=== PATIENT | male | born 2005 | race Caucasian/White ===

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

== ENCOUNTER 2024-03-09 09:43 | Outpatient (CLI) | payer BC, SELFPAY ==
[2024-03-09 10:22] LABS: Basophils Absolute Auto 0.1 K/mm3 (0.0-0.1); Basophils Percent Auto 0.8 % (0.2-1.2); Eosinophils Absolute Auto 0.3 K/mm3 (0-0.3); Eosinophils Percent Auto 4.1 % (0-4.4); Hematocrit 46.7 % (42.0-52.0); Hemoglobin 16.4 g/dL (14.0-18.0); Immature Granulocyte Absolute 0.02 K/mm3 (0.00-0.031); Immature Granulocyte Percent A 0.3 % (0-0.5); Lymphocytes Absolute Auto 2.46 K/mm3 (0.9-3.2); Lymphocytes Percent Auto 39.2 % (18.3-44.2); Mean Corpuscular HGB Conc 35.1 g/dl (32-36); Mean Platelet Volume 9.1 fl (7.4-10.4); Monocytes Absolute Auto 0.8 K/mm3 (0.1-0.6); Monocytes Percent Auto 13.4 % (2.6-8.5); Neutrophils Absolute Auto 2.7 K/mm3 (1.3-6.7); Neutrophils Percent Auto 42.2 % (45.5-73.1); Platelet Count Result 313 k/mm3 (150-375); Red Blood Count 5.13 M/mm3 (4.6-6.20); Red Cell Distribution Width 11.8 % (11.5-14.5); White Blood Count 6.3 K/mm3 (4.5-10.0)
[2024-03-09 10:30] LABS: Alanine Aminotransferase 133 U/L (6-50); Albumin Level 4.6 g/dL (3.7-5.6); Alkaline Phosphatase 74 U/L (58-237); Anion Gap 8 mmol/L (4-12); Aspartate Amino Transferase 43 U/L (17-59); Blood Urea Nitrogen 21 mg/dL (8-21); Calcium 9.5 mg/dL (8.9-10.7); Carbon Dioxide 28 mmol/L (22-30); Chloride 104 mmol/L (98-107); Estimated Glomerular Filt Rate > 60; Glucose 92 mg/dL (65-110); Sodium 140 mmol/L (134-143)
== END 2024-03-09 09:44 | disposition home or self-care (01) ==
LOC: ANHLAB 09:44
PROVIDERS: PCP Family Medicine; Visit Provider Family Medicine
DX: F41.9 Anxiety disorder, unspecified (principal); R10.84 Generalized abdominal pain
CPT/HCPCS: 36415; 80053; 84443; 85025

== ENCOUNTER 2024-04-14 08:07 | Outpatient (CLI) | payer BC, SELFPAY ==
[2024-04-15 14:08] LABS: CMV IgG Antibody <0.60 U/mL; CMV IgM Antibody <30.00 AU/mL; EBV Virus Capsid Ag IgM Ab <36.00 U/mL
== END 2024-04-14 08:08 | disposition home or self-care (01) ==
PROVIDERS: PCP Family Medicine; Visit Provider Nurse Practitioner Family
DX: R10.84 Generalized abdominal pain (principal); R11.2 Nausea with vomiting, unspecified; R74.8 Abnormal levels of other serum enzymes
CPT/HCPCS: 36415; 86644; 86645; 86664; 86665

== ENCOUNTER 2024-04-29 10:22 | Outpatient (CLI) | payer BC, SELFPAY ==
[2024-04-29 12:01] LABS: Hepatitis B Surface Antigen Negative (Negative)
[2024-04-29 12:06] LABS: HAV RESULT Negative (Negative); Hepatitis B Core IgM Result Negative (Negative)
[2024-04-29 12:08] LABS: Alanine Aminotransferase 98 U/L (6-50); Albumin Level 4.4 g/dL (3.7-5.6); Alkaline Phosphatase 76 U/L (58-237); Aspartate Amino Transferase 37 U/L (17-59); Bilirubin,Total 1.2 mg/dL (0.2-1.3); CRP < 0.5 mg/dL (<1.0)
[2024-04-29 12:17] LABS: Hepatitis C Virus Antibody Negative (Negative)
[2024-04-29 12:48] LABS: Erythrocyte Sedimentation Rate 6 mm/hr (0-20)
[2024-05-03 15:27] LABS: Immunoglobulin A 315 mg/dL (47-310); TTG IGA AB <1.0 U/mL
== END 2024-04-29 10:23 | disposition home or self-care (01) ==
LOC: ANHLAB 10:24
PROVIDERS: PCP Family Medicine; Visit Provider Nurse Practitioner
DX: K52.9 Noninfective gastroenteritis and colitis, unspecified (principal); R10.30 Lower abdominal pain, unspecified; R11.2 Nausea with vomiting, unspecified; R74.01 Elevation of levels of liver transaminase levels
CPT/HCPCS: 36415; 80074; 80076; 82784; 85652; 86140; 86364

== ENCOUNTER 2024-05-05 10:53 | Outpatient (CLI) | payer BC, SELFPAY ==
[2024-05-06 10:18] LABS: H pylori Ag Stool RESULT: Not Detected
[2024-05-14 19:03] LABS: Calprotectin, Stool 16 mcg/g
[2024-05-14 23:38] LABS: Pancreatic Elastase, Stool >500 mcg/g
== END 2024-05-05 10:54 | disposition home or self-care (01) ==
PROVIDERS: PCP Family Medicine; Visit Provider Nurse Practitioner
DX: A04.8 Other specified bacterial intestinal infections (principal); K52.9 Noninfective gastroenteritis and colitis, unspecified; R74.01 Elevation of levels of liver transaminase levels
CPT/HCPCS: 82653; 83993; 87045; 87338; 87427; 87449

== ENCOUNTER 2024-05-28 00:25 | Day surgery (SDC) | payer BC, SELFPAY ==
[2024-05-11 13:51] VITALS: BMI 29.2
[2024-05-28 08:52] VITALS: BP 120/77; PULSE 87; RESP 20; TEMP 36.8; O2SAT 100
[2024-05-28] MEDS: LACTATED RINGERS 1,000 ML 150 ML IV CONT (08:58)
--- NOTE | 2024-05-28 09:10 | WPDANESEPPF ---
Anes - Initial Pre Proc Eval Procedure: Operation Date: 05/28/24 10:00 Proposed Procedures p Esophagogastroduodenoscopy & Colonoscopy - Joni Cardona MD Date/Time: 05/28/24 09:10 Surgeon: Joni Cardona MD Pre Op Diagnosis: N&V, lower abd. pain, gastroenteritis/colitis Patient Data Age: 18 Gender: M Height: 1.8 m Weight: 102 kg Last Vital Signs Temp 98.3 F 05/28/24 08:52 Pulse 87 05/28/24 08:52 Resp 20 05/28/24 08:52 BP 120/77 05/28/24 08:52 Pulse Ox 100 05/28/24 08:52 O2 Del Method Room Air 05/28/24 08:52 Allergies Allergy/AdvReac Type Severity Reaction Status Date / Time peanut Allergy Unknown Anaphylactic Verified 05/28/24 08:48 Shock Home Medications Medication Instructions Recorded Confirmed Type epinephrine 0.3 mg/0.3 mL 0.3 mg IM DIRECTED PRN Allergy 03/09/24 05/28/24 History injection, auto-injector Symptoms sertraline 100 mg tablet 100 mg PO DAILY #90 tabs 03/09/24 05/28/24 Rx famotidine 40 mg tablet 40 mg PO DAILY #30 tabs 04/29/24 05/28/24 Rx multivitamin (Daily Multi-Vitamin 1 tablet PO DAILY 04/29/24 05/28/24 History tablet) Patient hx anesthesia problems: none Family hx anesthesia problems: none Results Review: All pre-operative results and documents have been reviewed as part of the pre-operative evaluation. [facility] Past Medical History Medical History Abdominal pain Allergies Anxiety Asthma Surgical History Surgical History History of adenoidectomy History of tonsillectomy Family History Family History Grandparent Pancreatic cancer Grandparent Heart disease Father Diabetes mellitus Depression Anxiety Mother Asthma Depression Anxiety Social History Social History Smoking status: Never smoker Second hand tobacco smoke exposure: No Alcohol intake: never Substance use: never Do You Feel Safe in your Home?: Yes Lack of Transportation: No Lack of Food: Never True Current Housing: I Have Housing Concerned About Future Housing: No Difficulty Paying Gas/Electric Bills: No Difficulty Paying for Meds: No Currently Unemployed: No Education: High School Diploma/GED Difficulty w/ Childcare or Family Care: No Living arrangements: with family Occupation/Education: student Gender identity (if verbalized by the patient): Male Spiritual care concerns: No Anes - Eval Final PreProcedure Day of Procedure 05/28/24 09:10 Patient weight: obese Heart: regular rate and rhythm Lungs: clear to auscultation Airway: Mallampati scale class II Neurological: alert and oriented Last oral intake: >/= 8 hours ASA classification: II Emergent: no Anesthetic plan: proceed Anesthesia type and monitoring: general GIVS and standard monitoring Results Review: All pre-operative results and documents have been reviewed as part of the pre-operative evaluation. Informed Consent: The patient's anesthetic plan and its attendant risks and benefits were discussed with the patient/family/POA. Questions were solicited and answers provided to the satisfaction of the patient/family/POA.
--- NOTE | 2024-05-28 10:00 | WPDHPUPDATE1 ---
History and Physical Update Update Date/Time: 05/28/24 10:00 History and Physical has been reviewed, including an updated exam of the patient. There are NO changes in the patient's condition. Risks, benefits, and alternatives have been discussed and questions answered. Patient agrees to proceed with procedure.
[2024-05-28] MEDS: BENZOCAINE (*SP) 60 ML SPRAY CAN (HURRICAINE) 1 SPRAY MUCOUS MEM (10:02)
--- NOTE | 2024-05-28 10:11 | SUR.OPER ---
EGD [id number]. Colon start time 1011.
[2024-05-28 10:24] VITALS: BP 99/44; PULSE 91; RESP 18; O2SAT 95
[2024-05-28 10:34] VITALS: BP 117/62; PULSE 85; RESP 13; O2SAT 95
[2024-05-28 10:44] VITALS: BP 137/60; PULSE 77; RESP 22; O2SAT 100
== END 2024-05-28 10:54 | disposition home or self-care (01) ==
PROVIDERS: PCP Family Medicine; Referring Provider Nurse Practitioner; Visit Provider Internal Medicine Gastroenterology
PROC: 0DJ08ZZ Inspection of Upper Intestinal Tract, Via Natural or Artificial Opening Endoscopic (ICD-10-PCS; CPT 43235; principal; 2024-05-28 10:00)
DX: K29.50 Unspecified chronic gastritis without bleeding (principal); R19.7 Diarrhea, unspecified; F41.9 Anxiety disorder, unspecified; E66.9 Obesity, unspecified
CPT/HCPCS: 45380; 43239; 88305; J2704; J7120

== ENCOUNTER 2024-06-17 12:02 | Outpatient (CLI) | payer BC, SELFPAY ==
[2024-06-17 12:37] LABS: Alanine Aminotransferase 156 U/L (6-50); Albumin Level 4.7 g/dL (3.7-5.6); Alkaline Phosphatase 74 U/L (58-237); Aspartate Amino Transferase 55 U/L (17-59); Bilirubin,Total 1.3 mg/dL (0.2-1.3)
== END 2024-06-17 12:03 | disposition home or self-care (01) ==
PROVIDERS: PCP Family Medicine; Visit Provider Nurse Practitioner
DX: R74.8 Abnormal levels of other serum enzymes (principal)
CPT/HCPCS: 36415; 80076

== ENCOUNTER 2024-07-02 07:27 | Outpatient (CLI) | payer BC, SELFPAY ==
--- NOTE | ~2024-07-02 | US_ITS ---
EXAM: ABDOMEN ULTRASOUND HISTORY: elevated ALT, check portal vasculature as well. COMPARISON: None FINDINGS: LIVER: The liver is increased in echogenicity and size, unable to measure the entirety of the liver d espite the use of a curved array ultrasound probe. The contour of the liver is smooth. The portal vein is patent, although demonstrates phasic flow (suggesting increased portal pressure ve rsus artifactual as reverberation from the adjacent hepatic artery). GALLBLADDER: No stones are identified within the gallbladder. No gallbladder wall thickening or pericholecystic fluid. BILE DUCTS: Common bile duct measures 2.7mm. PANCREAS: Limited evaluation of the pancreas secondary to overlying bowel gas SPLEEN: The spleen is unremarkable in echogenicity and borderline enlarged in size measuring 11.5 cm in longitudinal dimension. RIGHT KIDNEY: 11.3 cm. In length. No hydronephrosis or bulky renal calculi. LEFT KIDNEY: 13.3 cm in length. No hydronephrosis or renal calculi. VASCULATURE : The abdominal aorta is nonaneurysmal. The IVC is patent. IMPRESSION: Fatty infiltration of an enlarged liver. Phasic flow within the portal vein (although possibly artifactual from the adjacent hepatic artery). Gallbladder is unremarkable. The spleen is borderline enlarged. Evaluation of the pancreas is limited by overlying bowel gas. Reviewed, dictated and finalized at location A. IMPRESSION: Fatty infiltration of an enlarged liver. Phasic flow within the portal vein (although possibly artifactual from the amanda cent hepatic artery). Gallbladder is unremarkable. The spleen is borderline enlarged. Evaluation of the pancreas is limited by overlying bowel gas.
== END 2024-07-02 07:28 | disposition home or self-care (01) ==
PROVIDERS: PCP Family Medicine; Visit Provider Nurse Practitioner
DX: K76.0 Fatty (change of) liver, not elsewhere classified (principal); R74.01 Elevation of levels of liver transaminase levels
CPT/HCPCS: 76700

== ENCOUNTER 2024-07-06 13:02 | Outpatient (CLI) | payer BC, SELFPAY ==
[2024-07-06 13:43] LABS: Hematocrit 47.8 % (42.0-52.0); Mean Corpuscular HGB Conc 35.6 g/dl (32-36); Mean Corpuscular Hemoglobin 31.8 pg (26-34); Mean Corpuscular Volume 89.5 fl (80-100); Mean Platelet Volume 8.9 fl (7.4-10.4); Platelet Count Result 306 k/mm3 (150-375); Red Blood Count 5.34 M/mm3 (4.6-6.20); Red Cell Distribution Width 11.5 % (11.5-14.5); White Blood Count 6.5 K/mm3 (4.5-10.0)
[2024-07-06 13:53] LABS: Prothrombin Time 13.6 Seconds (11.1-14.7)
[2024-07-06 14:00] LABS: Cholesterol 254 mg/dL (0-200); Creatine Kinase 164 U/L (55-170); HDL Direct 33 mg/dL; Lipase 30 U/L (23-300); Triglycerides 366 mg/dL (<150)
[2024-07-06 14:09] LABS: Immunoglobulin G 1430 mg/dL (700-1600)
[2024-07-06 14:11] LABS: LDL Cholesterol Direct 136 mg/dL
[2024-07-06 14:19] LABS: Iron 163 ug/dL (49-181)
[2024-07-06 14:28] LABS: Percent Iron Saturation 56 % (20-50)
[2024-07-06 14:39] LABS: HIV 1/2 Ab P24 Ag Result Negative (Negative)
[2024-07-07 14:52] LABS: GGT 58 U/L (9-31)
[2024-07-08 04:33] LABS: Alpha-1-Antitrypsin, QN 81 mg/dL (83-199); Ceruloplasmin 21 mg/dL (14-30)
[2024-07-09 07:33] LABS: Anti Nuclear Antibody Pattern Nuclear, Speckled; Anti Nuclear Antibody Titer 1:40 titer
[2024-07-10 21:43] LABS: Actin Antibody (IgG) <20 U (<20)
[2024-07-10 22:54] LABS: LKM 1 Antibody <=20.0 U (<=20.0)
[2024-07-13 09:53] LABS: Mitochondrial (M2) Ab (IgG) <20.0 U
== END 2024-07-06 13:03 | disposition home or self-care (01) ==
LOC: ANHLAB 13:03
PROVIDERS: PCP Family Medicine; Visit Provider Nurse Practitioner
DX: K74.60 Unspecified cirrhosis of liver (principal); R11.2 Nausea with vomiting, unspecified; R74.01 Elevation of levels of liver transaminase levels
CPT/HCPCS: 36415; 80061; 82103; 82390; 82550; 82728; 82784; 82977; 83520; 83540; 83550; 83690; 84443; 85027; 85610; 86038; 86039; 86364; 86376; 86703; G0432

== ENCOUNTER 2024-07-09 10:54 | Outpatient (CLI) | payer BC, SELFPAY ==
[2024-07-11 02:18] LABS: Alpha-1-Antitrypsin, QN 80 mg/dL (83-199)
== END 2024-07-09 10:55 | disposition home or self-care (01) ==
LOC: ANHLAB 10:55
PROVIDERS: PCP Family Medicine; Visit Provider Internal Medicine Gastroenterology
DX: R74.01 Elevation of levels of liver transaminase levels (principal); E88.01 Alpha-1-antitrypsin deficiency
CPT/HCPCS: 36415; 82103

== ENCOUNTER 2024-07-16 13:50 | Outpatient (CLI) | payer BC, SELFPAY | END 2024-07-16 13:51 | disposition home or self-care (01) | LOC: ANHLAB 13:51 | PROVIDERS: PCP Family Medicine; Visit Provider Nurse Practitioner | DX: E88.01 Alpha-1-antitrypsin deficiency (principal) | CPT/HCPCS: 36415; 82104 ==

== ENCOUNTER 2024-09-23 11:41 | Outpatient (CLI) | payer BC, SELFPAY ==
--- NOTE | ~2024-09-23 | MR_ITS ---
EXAMINATION: MR pelvis wo/w con DATE: 09/23/2024 12:25 INDICATION: Pilonidal cyst without abscess. TECHNIQUE: Magnetic resonance imaging (MRI) of the pelvis was performed without and with 20 mL MultiH ance intravenous contrast. COMPARISON: None. FINDINGS: There are no dilated loops of bowel. There are no pathologically enlarged lymph nodes. There is no fr ee intraperitoneal fluid. There is a skin marker at the superior aspect of the intergluteal cleft. Th ere is a subcutaneous low signal mass in this area measuring 1.5 x 0.6 cm. IMPRESSION: 1. 1.5 x 0.6 cm low signal subcutaneous mass at the superior aspect of the intragluteal cleft, which may be scar tissue or a foreign body or dystrophic calcification. Reviewed, dictated and finalized at location A. SALES IMPRESSION: 1. 1.5 x 0.6 cm low signal subcutaneous mass at the superior aspect of the intr agluteal cleft, which may be scar tissue or a foreign body or dystrophic calcif ication.
== END 2024-09-23 11:42 | disposition home or self-care (01) ==
PROVIDERS: PCP Family Medicine; Visit Provider Nurse Practitioner Family
DX: R22.9 Localized swelling, mass and lump, unspecified (principal); L05.91 Pilonidal cyst without abscess; L73.2 Hidradenitis suppurativa
CPT/HCPCS: 72197; A9577

== ENCOUNTER 2024-10-12 13:54 | Outpatient (CLI) | payer BC, SELFPAY ==
--- NOTE | ~2024-10-12 | XR_ITS ---
EXAMINATION: XR chest 2V 10/12/2024 14:47 INDICATION: Mild intermittent asthma. PROCEDURE: 2 view chest COMPARISON: 09/04/2021 FINDINGS: The lungs are clear. The cardiomediastinal silhouette is within normal limits. There are no pleural effusions. There is no pneumothorax suspected. IMPRESSION: 1: NO ACUTE CARDIOPULMONARY DISEASE. Reviewed, dictated and finalized at location A. STICS CLERK
--- NOTE | 2024-10-15 13:39 | P.PCNPFT_ITS ---
PFT Procedure Performed PFT Procedure Performed Spirometry with Pre/Post Bronchodilator Plethysmography (Lung Vol) Diffusing Cap (DLCO) Flow Vol Loop PFT Interpretation DOS: 10/12/2024 REQUESTING: Carlos Holder APRN REASON FOR TESTING: abnormal alpha-1 genotype, MZ; asthma PULMONARY FUNCTION TESTS Results are reliable and reproducible. Repeatability of spirometry FEV1 maneuver pre and post bronchodilator is Grade A. Heriberto: [facility] 2012 reference equations were used. Spirometry: The pre-bronchodilator FEV1 is 4.12 L, 89%, normal. The pre- bronchodilator FVC is 5.50 L, 101%, normal. The FEV1/FVC ratio is 75%, normal. After bronchodilator, the FEV1 is 4.43 L, 96%, +8%. After bronchodilator, the FVC is 5.46 L, 101%, no change. The FEV1/FVC ratio is 81%, normal. Lung volumes: The total lung capacity is 6.31 L, 116%, normal. The residual volume is 0.78 L, 70%, normal. The RV/TLC is 12%. Airway resistance is increased. Diffusion: DLCO is 29.9, 79%, normal. The DLCO/VA is 4.96, 90%, normal. Flow volume loop: The flow volume loop is normal. IMPRESSION: Normal spirometry without change following bronchodilator, normal lung volumes and normal diffusion. No prior studies for comparison. Hattie Sims MD
== END 2024-10-12 13:55 | disposition home or self-care (01) ==
PROVIDERS: PCP Family Medicine; Visit Provider Nurse Practitioner Family
DX: J45.20 Mild intermittent asthma, uncomplicated (principal); E88.01 Alpha-1-antitrypsin deficiency
CPT/HCPCS: 71046; 94060; 94726; 94729

== ENCOUNTER 2025-04-07 10:52 | Outpatient (CLI) | payer BC, SELFPAY ==
--- OUTSIDE RECORDS SUMMARY | 2025-04-07 11:19 | XMS_ITS | Encounter Summary ---
Author Organization [facility] Health Address [address] [place] [address] Care Team Providers Care Residential Tech Name Role Phone Daniel Millan MD Primary Care Provider [phone] Valentino Whiteside MD Unavailable Encounter Details Date Type Department Care Team (Late st Contact Info) Description 04/25/2022 Lab Requisition [facility] D[facility] [address] [place] [address] Dax Rico MD [address] [place] [address] Social History Tobacco Use Types Packs/Day Years Used Date Smoking Tobacco: Never Smokeless Tobacco: Never Alcohol Use Standard Drinks/Week Comments No 0 (1 standard drink = 0.6 oz pur e alcohol) Sex and Gender Information Value Date Recorded Sex Assigned at Not on file Legal Sex Male 1:08 PM CDT Gender Identity Not on file Sexual Orientation Not on file documented as of this encounter Plan of Treatment Not on file documented as of this encounter Procedures Procedure Name Priority Date/Time Associated Diagnosis Comments DERMATOPATHOLOGY Routine 04/24/2022 12:0 0 AM CDT documented in this encounter Results * DERMATOPATHOLOGY (04/24/2022 12:00 AM CDT) Case Report Dermatopathology Report Case: [id number] Authorizing Provider: Dax Rico MD Collected: 04/24/2022 12:00 AM Ordering Location: [facility] DermPath Lab Received: 04/25/2022 04:22 PM Pathologist: Beth Luevano MD Specimen: Skin, right post base of neck 3:49 PM CDT DERMATOPATHOLOGY LABORATORY Final Diagnosis Specimen A. 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 Other. Please Check Margins. 3:49 PM CDT DERMATOPATHOLOGY LABORATORY Gross Description Specimen A: Received is one formalin filled container labeled with the patients name and designated right post base of neck. The specimen consists of a shave removal measuring [id number] that is inked and bisected. Jar 0. 3:49 PM CDT DERMATOPATHOLOGY LABORATORY Microscopic Description Specimen A. SKIN, right post base of neck: Sections show a proliferation of blood vessels in lobules lined by uniform endothelial cells and by fibrous septa. The stroma is edematous and contains a mixed inflammatory cell infiltrate. The overlying epidermis is eroded. This lesion is not present at the sampled margin of the specimen. 3:49 PM CDT DERMATOPATHOLOGY LABORATORY Disclaimer An external and internal positive and negative controls are appropriate for the histochemical, immunohistochemical and immunofluorescence stain(s) in this case (if any), except where stated explicitly. The performance characteristics of the stain(s) cited in this report were developed and its performance characteristic determined by the Dermatopathology Laboratory at [facility], directed by Dr. Christa Cortez. These tests need not be, and therefore are not, approved by the [place] Food and Drug Administration. The tests are used for clinical purposes. Billing Codes Specimen Charges Stain Charges 71574 1 2 3:49 PM CDT DERMATOPATHOLOGY LABORATORY Embedded Images 3:49 PM CDT DERMATOPATHOLOGY LABORATORY Pathology/Cytolog y TISSUE SPECIMEN FROM SKIN / Unknown 04/24/2022 04/25/2022 4:22 PM CDT Dax Rico MD LAB - PATHOLOGY/CYTOLOGY ORD ERABLES Final Result DERMATOPATHOLOGY LABORATORY [facility] - Department of Dermatology [facility] [address] [place] [address], [facility] [phone] documented in this encounter Visit Diagnoses Not on filedocumented in this encounter Care Teams Residential Tech Relationship Specialty Start Date End Date Daniel Millan MD [address] [place] [address] PCP - General Pediatrics 06/24/15 Valentino Whiteside MD [address] [place] [address] Orthopedic Surgery Orthopedic Surgery 11/26/19 documented as of this encounter
--- OUTSIDE RECORDS SUMMARY | 2025-04-07 11:19 | XMS_ITS | Clinical Summary ---
Author Organization [facility] Address [address] [place] [address] Care Team Providers Care District Court Reporter Name Role Phone Daniel Millan MD Primary Care Provider [phone] Valentino Whiteside MD Unavailable Source Comments [facility],non-owned Affiliates and Associated Physician Practices is amultiple site organization consisting of ambulatory clinics and hospital sitesin [place], [place], [place] and [place]. This disclosure is being madepursuant to the Care Everywhere program and may not contain all information available regarding this patient. Last updated 18.[facility] Allergies Active Allergy Reactions Criticality Noted Date Comments Coconut Oil 06/24/2015 Peanut-Derived 06/24/2015 Tree Nuts 06/24/2015 Medications * Be aware that medications may not be up to date on this document. Alwaysverify current medications with the patient. fluticasone propionate (FLONASE) 50 MCG/ACT nasal spray Angora 2 Sprays into each nostril once daily Active acetaminophen (TYLENOL) 325 MG tablet Take 2 Tabs by mouth every 6 hours as needed for Pain Maximum allowable Acetaminophen amount = 4 Grams (4000 mg) / 24 hours. 60 Tab 6 Active fluticasone-sa lmeterol (WIXELA INHUB) 100-50 MCG/DOSE inhaler Inhale 1 puff by mouth 2 times daily Active montelukast (SINGULAIR) 5 MG chew tablet Take 5 mg by mouth at bedtime Active ibuprofen (MOTRIN) 200 MG tablet Take 400 mg by mouth every 6 hours as needed for Pain Active albuterol HFA (PROVENTIL;TRACE TOLIN;PROAIR) 108 (90 Base) MCG/ACT inhaler Inhale 2 puffs by mouth every 4 hours as needed Active Active Problems Problem Noted Date Diagnosed Date Displaced fracture of lesser trochanter of right femur, initial encounter for closed fracture 12/31/2019 Chronic pain of right knee 09/05/2016 Right knee injury 07/06/2015 Social History Tobacco Use Types Packs/Day Years Used Date Smoking Tobacco: Never Smokeless Tobacco: Never Alcohol Use Standard Drinks/Week Comments No 0 (1 standard drink = 0.6 oz pur e alcohol) Sex and Gender Information Value Date Recorded Sex Assigned at Not on file Legal Sex Male 1:08 PM CDT Gender Identity Not on file Sexual Orientation Not on file Last Filed Vital Signs Vital Sign Reading Time Taken Comments Blood Pressure 118/66 09/11/2019 10:00 PM CONCRETE PAVING MACHINE OPERATOR Pulse 72 09/11/2019 10:00 PM CONCRETE PAVING MACHINE OPERATOR Temperature 36.3 C (97.4 F) 09/11/2019 10:00 PM CONCRETE PAVING MACHINE OPERATOR Respiratory Rate 18 09/11/2019 10:00 PM CONCRETE PAVING MACHINE OPERATOR Oxygen Saturation 99% 09/11/2019 10:00 PM CONCRETE PAVING MACHINE OPERATOR Inhaled Oxygen Concentration - - Weight 66.4 kg (146 lb 6.2 oz) 12/31/2019 12:59 PM CDT Height 173.5 cm (5' 8.31) 12/31/2019 12:59 PM C DT Body Mass Index 22.06 12/31/2019 12:59 PM CDT Plan of Treatment Health Maintenance Due Date Last Done Comments HIV SCREENING 2019 HPV VACCINE (1 - Male 3-dose series) 2019 MENINGOCOCCAL (Group B) VACC INE SHARED DECISION-MAKING (1 of 2 - Standard) 2020 HEPATITIS C SCREENING 10/16/2022 DTAP/TDAP/TD VACCINES (1 - Tdap) 2023 HEPATITIS B VACCINE (1 of 3 - 19+ 3-dose series) 2023 COVID-19 VACCINE (1 - 2023-2 5 season) 2024 DEPRESSION SCREENING 09/22/2024 INFLUENZA VACCINE (#1) 2025 ZOSTER VACCINE (1 of 2) 2054 HIB VACCINE Aged Out No longer eligi ble based on patient's age to complete this topic MENINGOCOCCAL GROUPS A/C/Y/W VACCINE Aged Out No longer eligible b ased on patient's age to complete this topic PNEUMOCOCCAL VACCINE Aged Out No long er eligible based on patient's age to complete this topic Insurance [facility] SELF PAY NO INSURANCE Member Subscriber Plan / Payer (Ef fective for All Dates) Name:Narinder Grayson Member ID:Not on file Relation to Subscriber:Not on file Name:NARINDER GRAYSON Subscriber ID:Not on file (Home) Address: [facility] [place] [address] Payer ID:Not on file Group ID:Not on file Type:Self Pay Address: [facility] ANTHEM ANTHEM Care Teams District Court Reporter Relationship Specialty Start Date End Date Daniel Millan MD [address] [place] [address] PCP - General Pediatrics 06/24/15 Valentino Whiteside MD [address] [place] [address] Orthopedic Surgery Orthopedic Surgery 11/26/19
--- OUTSIDE RECORDS SUMMARY | 2025-04-07 11:19 | XMS_ITS | Clinical Summary ---
Author Organization [facility] Address [address] [place] [address] Care Team Providers Care Publications Production Supervisor Name Role Phone Unavailable Primary Care Provider Unavailabl e Social History Tobacco Use Types Packs/Day Years Used Date Smoking Tobacco: Never Assessed Sex and Gender Information Value Date Recorded Sex Assigned at Not on file Legal Sex Male 5:18 PM CDT Gender Identity Not on file Sexual Orientation Not on file Plan of Treatment Health Maintenance Due Date Last Done Comments Annual Physical 2007 HPV Vaccines (1 - Male 3-dos e series) 2019 Meningococcal B Vaccine (1 o f 2 - Standard) 2020 Hepatitis C 2022 DTaP, Tdap and Td Vaccines ( 1 - Tdap) 2023 Hepatitis B Vaccines (1 of 3 - 19+ 3-dose series) 2023 COVID-19 Vaccine (1 - 2023-2 5 season) 2024 Meningococcal Vaccine Aged Out No [place] eligible based on patient's age to complete this topic Pneumococcal Vaccine: Pediat rics (0 to 5 Years) and At-Risk Patients (6 to 49 Years) Aged Out No longer eligible b ased on patient's age to complete this topic RSV Immunizations Under 20 Months Aged Out No longer eligible based on patient's age to complete this topic
--- NOTE | 2025-04-07 12:47 | P.PCNPFT_ITS ---
PFT Procedure Performed PFT Procedure Performed Spirometry with Pre/Post Bronchodilator Plethysmography (Lung Vol) Diffusing Cap (DLCO) Flow Vol Loop PFT Interpretation This is a pulmonary function test with pre and post-bronchodilator spirometry, plethysmography and diffusing capacity. The test was performed and results interpreted in accordance with the 2019 and 2005 ATS/ERS Task Force guidelines respectively using the Global Lung Function Initiative-2012 reference equations. Patient demonstrated good effort and cooperation. Reproducibility criteria were met. The quality of the pre bronchodilator spirometry maneuver was Grade A and post bronchodilator spirometry maneuver was Grade A. Findings: Spirometry: The contour the inspiratory and expiratory flow tracing are normal. The pre bronchodilator FVC is 4.97 L, 88% predicted. The pre bronchodilator FEV1 is 3.65 L, 76% predicted. The pre bronchodilator FEV1: FVC ratio 73%. The post bronchodilator FVC is 4.96 L, representing no change. The post bronchodilator FEV1 is 3.90 L, representing a 7% increase. The post bronchodilator FEV1: FVC ratio is 79%. Plethysmography: The total lung capacity 6.00 L, 85% predicted. The functional residual capacity is 2.14 L, 63% predicted. The residual volume is 0.88 L, 60% predicted. Diffusing capacity: The diffusing capacity unadjusted for hemoglobin and carboxyhemoglobin is 28.4, 75% predicted. The diffusing capacity adjusted for alveolar volume is 4.80, 89% predicted. In comparison to previous pulmonary function testing on 10/12/2024, the post bronchodilator FVC is unchanged from 5.48 L to 4.96 L. The post bronchodilator FEV1 is unchanged from 4.43 L to 3.90 L. The total lung capacity is unchanged from 6.31 L to 6.00 L. The functional residual capacity is unchanged from 2.42 L to 2.14 L. The residual volume is unchanged from 0.78 L to 0.88 L. The diffusing capacity unadjusted for hemoglobin and carboxyhemoglobin is unchanged from 29.9 to 28.4. The diffusing capacity adjusted for alveolar volume is unchanged from 4.96 to 4.80. Impression: There is a mild obstructive abnormality. There is no significant improvement after inhaling a single dose of albuterol. The lung volumes are normal. The diffusing capacity unadjusted for hemoglobin and carboxyhemoglobin i s mildly decreased and normalizes when adjusted for alveolar volume. When compared to previous pulmonary function testing on 10/12/2024, there has been no significant change in the FVC, FEV1, total lung capacity, functional residual capacity, residual volume or diffusing capacity. Clinical correlation is recommended.
== END 2025-04-07 10:53 | disposition home or self-care (01) ==
PROVIDERS: PCP Family Medicine; Visit Provider Nurse Practitioner Family
DX: J45.20 Mild intermittent asthma, uncomplicated (principal); E88.01 Alpha-1-antitrypsin deficiency; R94.2 Abnormal results of pulmonary function studies
CPT/HCPCS: 94060; 94726; 94729

== ENCOUNTER 2025-04-29 10:15 | Outpatient (CLI) | payer BC, SELFPAY ==
--- OUTSIDE RECORDS SUMMARY | 2025-04-29 10:19 | XMS_ITS | Encounter Summary ---
Author Organization [facility] Health Address [address] [facility] [place] [address] Care Team Providers Care Wood Fuel Pelletizer Name Role Phone Daniel Millan MD Primary Care Provider [phone] Valentino Whiteside MD Unavailable Encounter Details Date Type Department Care Team (Late st Contact Info) Description 04/25/2022 Lab Requisition [facility] Care DermPath Lab [address] [facility] [facility], [facility] [place] [address] Dax Rico MD [address] [place] [address] Social History Tobacco Use Types [...] AM CDT) Case Report Dermatopathology Report Case: [id number] Authorizing Provider: Dax Rico MD Collected: 04/24/2022 12:00 AM Ordering Location: [facility] DermPath Lab Received: 04/25/2022 04:22 PM Pathologist: [...] specimen consists of a shave removal measuring [id number] that is inked and bisected. Jar 0. [...] characteristic determined by the Dermatopathology Laboratory at [facility], directed by Dr. Christa Cortez. These tests need not be, and therefore are not, approved by the [place] Food and Drug Administration. The tests are used for clinical purposes. Billing Codes Specimen Charges Stain Charges 35274 1 2 3:49 PM CDT DERMATOPATHOLOGY LABORATORY Embedded Images 3:49 PM CDT DERMATOPATHOLOGY LABORATORY Pathology/Cytolog y TISSUE SPECIMEN FROM SKIN / Unknown 04/24/2022 04/25/2022 4:22 PM CDT Dax Rico MD LAB - PATHOLOGY/CYTOLOGY ORD ERABLES Final Result DERMATOPATHOLOGY LABORATORY [facility] - Department of Dermatology [facility] Specialized Medicine [address], [address]rd [place] [address], [facility] [phone] documented in this encounter Visit Diagnoses Not on filedocumented in this encounter Care Teams Wood Fuel Pelletizer Relationship Specialty Start Date End Date Daniel Millan MD [address] [place] [address] PCP - General Pediatrics 06/24/15 Valentino Whiteside MD [address] [place] [address] Orthopedic Surgery Orthopedic Surgery 11/26/19 documented as of this encounter
--- OUTSIDE RECORDS SUMMARY | 2025-04-29 10:19 | XMS_ITS | Clinical Summary ---
Author Organization [facility] Address [address] [facility] [place] [address] Care Team Providers Care Financial Sales Manager Name Role Phone Daniel Millan MD Primary Care Provider [phone] Valentino Whiteside MD Unavailable Source Comments [facility],non-owned Affiliates and Associated Physician Practices is amultiple site organization consisting of ambulatory clinics and hospital sitesin [place], [place], [place] and [place]. This disclosure is being madepursuant to the Care Everywhere program and may not contain all information available regarding this patient. Last updated 18.[facility] Allergies Active Allergy Reactions Criticality Noted Date Comments Coconut Oil 06/24/2015 Peanut-Derived 06/24/2015 Tree Nuts 06/24/2015 Medications * Be aware that medications may not be up to date on this document. Alwaysverify current medications with the patient. fluticasone propionate (FLONASE) 50 MCG/ACT nasal spray [place] 2 Sprays into each nostril once daily [...] Comments Blood Pressure 118/66 09/11/2019 10:00 PM BUSINESS CONTROLLER Pulse 72 09/11/2019 10:00 PM BUSINESS CONTROLLER Temperature 36.3 C (97.4 F) 09/11/2019 10:00 PM BUSINESS CONTROLLER Respiratory Rate 18 09/11/2019 10:00 PM BUSINESS CONTROLLER Oxygen Saturation 99% 09/11/2019 10:00 PM BUSINESS CONTROLLER Inhaled Oxygen Concentration - - Weight 66.4 [...] patient's age to complete this topic Insurance [facility] SELF PAY NO INSURANCE Member Subscriber Plan / Payer (Ef fective for All Dates) Name:Narinder Grayson Member ID:Not on file Relation to Subscriber:Not on file Name:NARINDER GRAYSON Subscriber ID:Not on file (Home) Address: [address] [facility] [place] [address] Payer ID:Not on file Group ID:Not on file Type:Self Pay Address: [facility] ANTHEM ANTHEM Care Teams Financial Sales Manager Relationship Specialty Start Date End Date Daniel Millan MD [address] [place] [address] PCP - General Pediatrics 06/24/15 Valentino Whiteside MD [address] [place] [address] Orthopedic Surgery Orthopedic Surgery 11/26/19
--- OUTSIDE RECORDS SUMMARY | 2025-04-29 10:19 | XMS_ITS | Clinical Summary ---
Author Organization [facility] Address [address] [place] [address] Care Team Providers Care Rehabilitation Consultant Name Role Phone Unavailable Primary Care Provider [...]
[2025-04-29 11:22] LABS: Hematocrit 47.4 % (42.0-52.0); Hemoglobin 16.5 g/dL (14.0-18.0); Mean Corpuscular HGB Conc 34.8 g/dl (32-36); Mean Corpuscular Hemoglobin 31.9 pg (26-34); Mean Corpuscular Volume 91.7 fl (80-100); Platelet Count Result 299 k/mm3 (150-375); Red Blood Count 5.17 M/mm3 (4.6-6.20); White Blood Count 4.9 K/mm3 (4.5-10.0)
[2025-04-29 11:43] LABS: Alanine Aminotransferase 127 U/L (6-50); Albumin Level 4.4 g/dL (3.5-5.1); Alkaline Phosphatase 74 U/L (38-126); Anion Gap 10 mmol/L (4-12); Aspartate Amino Transferase 58 U/L (17-59); Bilirubin,Total 1.3 mg/dL (0.2-1.3); Blood Urea Nitrogen 16 mg/dL (9-20); Calcium 9.0 mg/dL (8.4-10.2); Carbon Dioxide 21 mmol/L (22-30); Chloride 107 mmol/L (98-107); Estimated Glomerular Filt Rate > 60; Glucose 96 mg/dL (65-110); Potassium 4.2 mmol/L (3.4-5.0); Sodium 138 mmol/L (137-145); Total Protein 8.0 g/dL (6.3-8.2)
== END 2025-04-29 10:16 | disposition home or self-care (01) ==
LOC: ANHLAB 10:17
PROVIDERS: PCP Family Medicine; Visit Provider Nurse Practitioner Family
DX: R74.8 Abnormal levels of other serum enzymes (principal); K76.0 Fatty (change of) liver, not elsewhere classified
CPT/HCPCS: 36415; 80053; 85027

== ENCOUNTER 2025-05-01 08:18 | Emergency (ER) | payer BC, SELFPAY ==
--- NOTE | ~2025-05-01 | XR_ITS ---
EXAMINATION: XR abdomen/kub 1V DATE: 05/01/2025 10:06 INDICATION: Cramping TECHNIQUE: A supine view of the abdomen on 3 radiographs was obtained. COMPARISON: None. FINDINGS: Small amount of gas and and small to moderate amount of stool scattered throughout the colon. No dila lyn loops of gas-filled bowel to suggest obstruction. Lung bases are clear. Heart size is normal. Mil d thoracolumbar dextrocurvature. IMPRESSION: 1. Normal bowel gas pattern. Reviewed, dictated and finalized at location A.
--- OUTSIDE RECORDS SUMMARY | 2025-05-01 08:20 | XMS_ITS | Clinical Summary ---
Author Organization [facility] Address [address] [facility] [place] [address] Care Team Providers Care Senior Associate Name Role Phone Daniel Millan MD Primary Care Provider [phone] Valentino Whiteside MD Unavailable Source Comments [facility],non-owned Affiliates and Associated Physician Practices is amultiple site organization consisting of ambulatory clinics and hospital sitesin [place], [place], [place] and [place]. This disclosure is being madepursuant to the Care Everywhere program and may not contain all information available regarding this patient. Last updated 18.[facility] Allergies Active Allergy Reactions Criticality Noted Date Comments Coconut Oil 06/24/2015 Peanut-Derived 06/24/2015 Tree Nuts 06/24/2015 Medications * Be aware that medications may not be up to date on this document. Alwaysverify current medications with the patient. fluticasone propionate (FLONASE) 50 MCG/ACT nasal spray [place] 2 Sprays into each nostril once daily [...] Comments Blood Pressure 118/66 09/11/2019 10:00 PM SKILLED HELPER Pulse 72 09/11/2019 10:00 PM SKILLED HELPER Temperature 36.3 C (97.4 F) 09/11/2019 10:00 PM SKILLED HELPER Respiratory Rate 18 09/11/2019 10:00 PM SKILLED HELPER Oxygen Saturation 99% 09/11/2019 10:00 PM SKILLED HELPER Inhaled Oxygen Concentration - - Weight 66.4 [...] patient's age to complete this topic Insurance [facility] SELF PAY NO INSURANCE Member Subscriber Plan / Payer (Ef fective for All Dates) Name:Narinder Grayson Member ID:Not on file Relation to Subscriber:Not on file Name:NARINDER GRAYSON Subscriber ID:Not on file (Home) Address: [facility] [place] [address] Payer ID:Not on file Group ID:Not on file Type:Self Pay Address: [facility] ANTHEM ANTHEM Care Teams Senior Associate Relationship Specialty Start Date End Date Daniel Millan MD [address] [place] [address] PCP - General Pediatrics 06/24/15 Valentino Whiteside MD [address] [place] [address] Orthopedic Surgery Orthopedic Surgery 11/26/19
--- OUTSIDE RECORDS SUMMARY | 2025-05-01 08:20 | XMS_ITS | Clinical Summary ---
Author Organization [facility] Address [address] [place] [address] Care Team Providers Care Fiscal Clerk Name Role Phone Unavailable Primary Care Provider [...]
--- OUTSIDE RECORDS SUMMARY | 2025-05-01 08:20 | XMS_ITS | Encounter Summary ---
Author Organization [facility] Health Address [address] [facility] [place] [address] Care Team Providers Care Surgical Aides Teacher Name Role Phone Daniel Millan MD Primary Care Provider [phone] Valentino Whiteside MD Unavailable Encounter Details Date Type Department Care Team (Late st Contact Info) Description 04/25/2022 Lab Requisition [facility] Care DermPath Lab [address] [facility], [facility] [place] [address] Dax Rico MD [address] [place] [address] Social History Tobacco Use Types [...] AM CDT) Case Report Dermatopathology Report Case: [id number] Authorizing Provider: Dax Rico MD Collected: 04/24/2022 12:00 AM Ordering Location: [facility] DermPath Lab Received: 04/25/2022 04:22 PM Pathologist: [...] specimen consists of a shave removal measuring [id number] that is inked and bisected. Jar 0. [...] characteristic determined by the Dermatopathology Laboratory at [facility], directed by Dr. Christa Cortez. These tests need not be, and therefore are not, approved by the [place] Food and Drug Administration. The tests are used for clinical purposes. Billing Codes Specimen Charges Stain Charges 26279 1 2 3:49 PM CDT DERMATOPATHOLOGY LABORATORY Embedded Images 3:49 PM CDT DERMATOPATHOLOGY LABORATORY Pathology/Cytolog y TISSUE SPECIMEN FROM SKIN / Unknown 04/24/2022 04/25/2022 4:22 PM CDT Dax Rico MD LAB - PATHOLOGY/CYTOLOGY ORD ERABLES Final Result DERMATOPATHOLOGY LABORATORY [facility] - Department of Dermatology [facility] Specialized Medicine [address] [facility], [address]rd [place] [address], [facility] [phone] documented in this encounter Visit Diagnoses Not on filedocumented in this encounter Care Teams Surgical Aides Teacher Relationship Specialty Start Date End Date Daniel Millan MD [address] [place] [address] PCP - General Pediatrics 06/24/15 Valentino Whiteside MD [address] [place] [address] Orthopedic Surgery Orthopedic Surgery 11/26/19 documented as of this encounter
[2025-05-01 08:28] VITALS: BP 134/81; PULSE 61; RESP 18; TEMP 36.6; O2SAT 98
--- OUTSIDE RECORDS SUMMARY | 2025-05-01 09:04 | XMS_ITS | Clinical Summary ---
Author Organization [facility] Address [address] [facility] [place] [address] Care Team Providers Care Alteration Worker Name Role Phone Daniel Millan MD Primary Care Provider Valentino Whiteside MD Unavailable Source Comments [facility],non-owned Affiliates and Associated Physician Practices is amultiple site organization consisting of ambulatory clinics and hospital sitesin [place], [place] and [place]. This disclosure is being madepursuant to the Care Everywhere program and may not contain all information available regarding this patient. Last updated 18.[facility] Allergies Active Allergy Reactions Criticality Noted Date Comments Coconut Oil 06/24/2015 Peanut-Derived 06/24/2015 Tree Nuts 06/24/2015 Medications * Be aware that medications may not be up to date on this document. Alwaysverify current medications with the patient. fluticasone propionate (FLONASE) 50 MCG/ACT nasal spray [place] 2 Sprays into each nostril once daily [...] Comments Blood Pressure 118/66 09/11/2019 10:00 PM SWIMMING INSTRUCTOR Pulse 72 09/11/2019 10:00 PM SWIMMING INSTRUCTOR Temperature 36.3 C (97.4 F) 09/11/2019 10:00 PM SWIMMING INSTRUCTOR Respiratory Rate 18 09/11/2019 10:00 PM SWIMMING INSTRUCTOR Oxygen Saturation 99% 09/11/2019 10:00 PM SWIMMING INSTRUCTOR Inhaled Oxygen Concentration - - Weight 66.4 [...] patient's age to complete this topic Insurance [facility] SELF PAY NO INSURANCE Member Subscriber Plan / Payer (Ef fective for All Dates) Name:Narinder Grayson Member ID:Not on file Relation to Subscriber:Not on file Name:NARINDER GRAYSON Subscriber ID:Not on file (Home) Address: [facility] [place] [address] Payer ID:Not on file Group ID:Not on file Type:Self Pay Address: [facility] ANTHEM ANTHEM Care Teams Alteration Worker Relationship Specialty Start Date End Date Daniel Millan MD [address] [place] [address] PCP - General Pediatrics 06/24/15 Valentino Whiteside MD [address] [place] [address] Orthopedic Surgery Orthopedic Surgery 11/26/19
--- OUTSIDE RECORDS SUMMARY | 2025-05-01 09:04 | XMS_ITS | Clinical Summary ---
Author Organization [facility] Address [address] [place] [address] Care Team Providers Care E Commerce Director Name Role Phone Unavailable Primary Care Provider [...]
--- OUTSIDE RECORDS SUMMARY | 2025-05-01 09:04 | XMS_ITS | Encounter Summary ---
Author Organization [facility] Health Address [address] [facility] [place] [place] [address] Care Team Providers Care Music Minister Name Role Phone Daniel Millan MD Primary Care Provider [phone] Valentino Whiteside MD Unavailable Encounter Details Date Type Department Care Team (Late st Contact Info) Description 04/25/2022 Lab Requisition [facility] Care DermPath Lab [address] [facility], [facility] [place] [address] Dax Rico MD [address] [place] [address] Social History Tobacco Use Types [...] AM CDT) Case Report Dermatopathology Report Case: [id number] Authorizing Provider: Dax Rico MD Collected: 04/24/2022 12:00 AM Ordering Location: [facility] DermPath Lab Received: 04/25/2022 04:22 PM Pathologist: [...] specimen consists of a shave removal measuring [id number] that is inked and bisected. Jar 0. [...] characteristic determined by the Dermatopathology Laboratory at [facility], directed by Dr. Christa Cortez. These tests need not be, and therefore are not, approved by the [place] Food and Drug Administration. The tests are used for clinical purposes. Billing Codes Specimen Charges Stain Charges 54785 1 2 3:49 PM CDT DERMATOPATHOLOGY LABORATORY Embedded Images 3:49 PM CDT DERMATOPATHOLOGY LABORATORY Pathology/Cytolog y TISSUE SPECIMEN FROM SKIN / Unknown 04/24/2022 04/25/2022 4:22 PM CDT Dax Rico MD LAB - PATHOLOGY/CYTOLOGY ORD ERABLES Final Result DERMATOPATHOLOGY LABORATORY [facility] - Department of Dermatology [facility] Specialized Medicine [address], [address]rd [place] [address], [facility] [phone] documented in this encounter Visit Diagnoses Not on filedocumented in this encounter Care Teams Music Minister Relationship Specialty Start Date End Date Daniel Millan MD [address] [place] [address] PCP - General Pediatrics 06/24/15 Valentino Whiteside MD [address] [place] [address] Orthopedic Surgery Orthopedic Surgery 11/26/19 documented as of this encounter
[2025-05-01] MEDS: MORPHINE SULFATE (*CRX) 4 MG/ML INJ IV PUSH (09:18)
[2025-05-01] MEDS: ONDANSETRON INJ 4 MG/2 ML VIAL IV PUSH (09:19)
[2025-05-01 09:20] LABS: Hematocrit 45.2 % (42.0-52.0); Hemoglobin 15.4 g/dL (14.0-18.0); Immature Granulocyte Percent A 0.2 % (0-0.5); Lymphocytes Absolute Auto 2.69 K/mm3 (0.9-3.2); Mean Corpuscular HGB Conc 34.1 g/dl (32-36); Mean Corpuscular Hemoglobin 31.4 pg (26-34); Mean Corpuscular Volume 92.1 fl (80-100); Nucleated Red Blood Cells Absolute Auto 0.000 K/mm3 (0.0-0.012); Nucleated Red Blood Cells Perc 0.0 % (0.0-0.2); Platelet Count Result 269 k/mm3 (150-375); Red Blood Count 4.91 M/mm3 (4.6-6.20); White Blood Count 5.7 K/mm3 (4.5-10.0)
[2025-05-01 09:28] VITALS: BP 129/91; PULSE 62; RESP 19; O2SAT 100
[2025-05-01 09:30] LABS: Alanine Aminotransferase 118 U/L (6-50); Albumin Level 4.1 g/dL (3.5-5.1); Alkaline Phosphatase 77 U/L (38-126); Anion Gap 7 mmol/L (4-12); Aspartate Amino Transferase 49 U/L (17-59); Bilirubin,Total 1.2 mg/dL (0.2-1.3); Blood Urea Nitrogen 19 mg/dL (9-20); Calcium 9.0 mg/dL (8.4-10.2); Carbon Dioxide 25 mmol/L (22-30); Chloride 105 mmol/L (98-107); Estimated CRCL calculation 137 ml/min; Estimated Glomerular Filt Rate > 60; Glucose 99 mg/dL (65-110); Lipase 28 U/L (23-300); Potassium 4.1 mmol/L (3.4-5.0); Sodium 137 mmol/L (137-145); Total Protein 7.5 g/dL (6.3-8.2)
--- NOTE | 2025-05-01 09:51 | ED.GENADULT ---
HPI - General Adult General Chief complaint: Abdominal Pain Stated complaint: abd pain Time Seen by Provider: 05/01/25 08:34 History of Present Illness HPI narrative: Patient is a 19-year-old male who presents ER with diffuse abdominal cramping. Started on viberzi 2 days ago. He has had a bowel movement each last 2 days. He is passing gas. No vomiting. No fevers chills or sweats. No known fatty liver. No urinary symptoms. No alleviating factors. Related Data Home Medications ?Medication ?Instructions ?Recorded ?Confirmed ?Last Taken ?Type epinephrine 0.3 mg/0.3 mL 0.3 mg IM DIRECTED PRN Allergy 03/09/24 04/29/25 Unknown History injection, auto-injector Symptoms multivitamin (Daily Multi-Vitamin 1 tablet PO DAILY 04/29/24 04/29/25 05/26/24 History tablet) albuterol sulfate 90 mcg/actuation 1 puff inhalation Q4H PRN 09/29/24 04/29/25 Unknown History aerosol inhaler Allergies Allergy/AdvReac Type Severity Reaction Status Date / Time peanut Allergy Unknown Anaphylactic Verified 05/01/25 08:28 Shock Review of Systems Review of Systems: All systems reviewed & are unremarkable except as noted in HPI and below Constitutional: Constitutional: Reports no additional constitutional complaints Cardiovascular: Cardiovascular: Reports no additional cardiovascular complaints Respiratory: Respiratory: Reports no additional respiratory complaints Gastrointestinal: Gastrointestinal: Reports no additional gastrointestinal complaints Genitourinary: Genitourinary: Reports no additional male genitourinary complaints [facility] Past Medical History Medical History (Updated 05/01/25 @ 10:54 by Hipolito Jensen MD) Fatigue 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 Abdominal pain Anxiety Allergies Asthma Surgical History Surgical History History of tonsillectomy History of adenoidectomy Family History Family History Grandparent Pancreatic cancer Grandparent Heart disease Father Diabetes mellitus Depression Anxiety Mother Asthma Depression Anxiety Social History Social History Smoking status: Never smoker Second hand tobacco smoke exposure: No Alcohol intake: never Substance use: never Do You Feel Safe in your Home?: Yes Lack of Transportation: No Lack of Food: Never True Current Housing: I Have Housing Concerned About Future Housing: No Difficulty Paying Gas/Electric Bills: No Difficulty Paying for Meds: No Currently Unemployed: No Education: High School Diploma/GED Difficulty w/ Childcare or Family Care: No Living arrangements: with family Occupation/Education: student Gender identity (if verbalized by the patient): Male Spiritual care concerns: No Exam Narrative: GENERAL: Well-appearing, well-nourished, and in no acute distress. HEAD: Normocephalic, atraumatic. ENT: Mucous membranes moist. CHEST: Clear to auscultation. No respiratory distress. HEART: Regular rate and rhythm. Normal peripheral pulses. ABDOMEN: Soft, nontender, nondistended. EXTREMITIES: Normal range of motion. No edema. SKIN: Warm, dry, no rash. NEURO: Alert and oriented x3. PSYCH: Normal mood and affect. Course Course Emergency Course: Discussed imaging when lab results. Symptoms improved with morphine and Zofran. Suspect patient is having side effects to his new medication and encouraged him to discontinue taking it. Vital Signs Vital signs: Vital Signs Temperature 97.9 F 05/01/25 08:28 Pulse Rate 61 05/01/25 08:28 Respiratory Rate 18 05/01/25 08:28 Blood Pressure 134/81 05/01/25 08:28 Pulse Oximetry 98 05/01/25 08:28 Oxygen Delivery Room Air 05/01/25 08:28 Temperature 97.9 F 05/01/25 08:28 Pulse Rate 62 05/01/25 09:28 Respiratory Rate 19 05/01/25 09:28 Blood Pressure 129/91 H 05/01/25 09:28 Pulse Oximetry 100 05/01/25 09:28 Oxygen Delivery Room Air 05/01/25 08:28 Medical Decision Making Vital Signs Vital Signs: Vital Signs Temperature 97.9 F 05/01/25 08:28 Pulse Rate 61 05/01/25 08:28 Respiratory Rate 18 05/01/25 08:28 Blood Pressure 134/81 05/01/25 08:28 Pulse Oximetry 98 05/01/25 08:28 Oxygen Delivery Room Air 05/01/25 08:28 Temperature 97.9 F 05/01/25 08:28 Pulse Rate 62 05/01/25 09:28 Respiratory Rate 19 05/01/25 09:28 Blood Pressure 129/91 H 05/01/25 09:28 Pulse Oximetry 100 05/01/25 09:28 Oxygen Delivery Room Air 05/01/25 08:28 Lab Data 05/01/25 09:14 05/01/25 09:14 Labs: Lab Results 05/01/25 05/01/25 Range/Units 09:14 09:18 WBC 5.7 (4.5-10.0) K/mm3 RBC 4.91 (4.6-6.20) M/mm3 Hgb 15.4 (14.0-18.0) g/dL Hct 45.2 (42.0-52.0) % MCV 92.1 (80-100) fl MCH 31.4 (26-34) pg MCHC 34.1 (32-36) g/dl RDW 11.7 (11.5-14.5) % Plt Count 269 (150-375) k/mm3 MPV 8.7 (7.4-10.4) fl Immature Gran % (Auto) 0.2 (0-0.5) % Neut % (Auto) 34.0 L (45.5-73.1) % Lymph % (Auto) 47.2 H (18.3-44.2) % [place] % (Auto) 14.4 H (2.6-8.5) % Eos % (Auto) 3.5 (0-4.4) % Baso % (Auto) 0.7 (0.2-1.2) % Lymph # (Auto) 2.69 (0.9-3.2) K/mm3 [place] # (Auto) 0.8 H (0.1-0.6) K/mm3 Eos # (Auto) 0.2 (0-0.3) K/mm3 Baso # (Auto) 0.0 (0.0-0.1) K/mm3 Abs Immat Gran (auto) 0.01 (0.00-0.031) K/mm3 Absolute Neuts (auto) 1.9 (1.3-6.7) K/mm3 Absolute Nucleated RBC 0.000 (0.0-0.012) K/mm3 Nucleated RBC % 0.0 (0.0-0.2) % Sodium 137 (137-145) mmol/L Potassium 4.1 (3.4-5.0) mmol/L Chloride 105 (98-107) mmol/L Carbon Dioxide 25 (22-30) mmol/L Anion Gap 7 (4-12) mmol/L BUN 19 (9-20) mg/dL Creatinine 0.97 (0.7-1.3) mg/dL Estim Creat Clear Calc 137 ml/min Estimated GFR > 60 (59 - ) Glucose 99 (65-110) mg/dL Calcium 9.0 (8.4-10.2) mg/dL Total Bilirubin 1.2 (0.2-1.3) mg/dL AST 49 (17-59) U/L ALT 118 H (6-50) U/L Alkaline Phosphatase 77 (38-126) U/L Total Protein 7.5 (6.3-8.2) g/dL Albumin 4.1 (3.5-5.1) g/dL Lipase 28 (23-300) U/L Urine Color Yellow (Yellow) Urine Appearance Clear (Clear) Urine pH 6.0 (5.0-9.0) Ur Specific [place] 1.028 (1.001-1.035) Urine Protein Negative (Negative) mg/dL Urine Glucose (UA) Negative (Negative) mg/dL Urine Ketones Negative (Negative) mg/dL Ur Blood (Man) Negative (Negative) Urine Nitrate Negative (Negative) Urine Bilirubin Negative (Negative) Urine Urobilinogen 0.2 (<2.0) mg/dL Leukocyte Esterase Rfl Negative (Negative) KEATON/UL Discharge Plan Discharge Clinical Impression: Medication side effect Patient Disposition: Home Condition: Stable Instructions: Abdominal Pain (ED) Additional Instructions: Return to the emergency department if you develop severe abdominal pain, severe nausea and vomiting to the point where you are unable to keep down fluids, if you develop chest pain or difficulty breathing, blood in your stool, dizziness or fainting, or if you develop any other new or concerning symptoms as these could be signs of more serious medical illness. Try to stay well hydrated. Patient Language: [place] Prescriptions: No Action epinephrine 0.3 mg/0.3 mL auto-injector 0.3 mg IM DIRECTED PRN (Reason: Allergy Symptoms) multivitamin [Daily Multi-Vitamin] Tablet 1 tablet PO DAILY albuterol sulfate 90 mcg/actuation HFA aerosol inhaler 1 puff inhalation Q4H PRN sertraline 100 mg tablet 100 mg PO DAILY Qty: 90 1RF eluxadoline 100 mg tablet 100 mg tablet 0RF famotidine [Heartburn Relief (famotidine)] 20 mg tablet 20 mg PO DAILY 30 Days Qty: 30 5RF Viberzi 75 mg tablet 75 mg PO BID 30 Days Qty: 60 5RF Rx Instructions: must administer with a meal/food Rezdiffra 100 mg tablet 100 mg PO DAILY 30 Days Qty: 30 5RF Follow-up/Referrals: Ian Schreiber MD [Primary Care Provider] - 1 Week
[2025-05-01 10:01] LABS: Add Urine Microscopic? NO; Appearance Urine Clear (Clear); Glucose Urine UA Negative (Negative); Leukocyte Esterase Ur Negative LEU/UL (Negative); Nitrate Urine Negative (Negative); Specific Grav Ur 1.028 (1.001-1.035)
[2025-05-01 11:05] VITALS: BP 124/69; PULSE 55; RESP 16; O2SAT 98
== END 2025-05-01 11:07 | disposition home or self-care (01) ==
PROVIDERS: Emergency Provider Emergency Medicine; PCP Family Medicine
DX: R10.9 Unspecified abdominal pain (principal); T50.995A Adverse effect of other drugs, medicaments and biological substances, initial encounter; J45.909 Unspecified asthma, uncomplicated; F41.9 Anxiety disorder, unspecified; Z79.899 Other long term (current) drug therapy
CPT/HCPCS: 36415; 74018; 80053; 81003; 83690; 85025; 96374; 96375; 99284; J2270; J2405

== ENCOUNTER 2025-08-10 09:50 | Outpatient (CLI) | payer BC, SELFPAY ==
[2025-08-10 10:51] LABS: Hematocrit 46.8 % (42.0-52.0); Hemoglobin 16.3 g/dL (14.0-18.0); Mean Corpuscular HGB Conc 34.8 g/dl (32-36); Mean Corpuscular Hemoglobin 31.8 pg (26-34); Mean Corpuscular Volume 91.2 fl (80-100); Platelet Count Result 295 k/mm3 (150-375); Red Blood Count 5.13 M/mm3 (4.6-6.20); White Blood Count 5.7 K/mm3 (4.5-10.0)
[2025-08-10 11:02] LABS: INR 1.0; Prothrombin Time 13.0 Seconds (11.1-14.7)
[2025-08-10 11:12] LABS: Alanine Aminotransferase 155 U/L (6-50); Albumin Level 4.3 g/dL (3.5-5.1); Alkaline Phosphatase 95 U/L (38-126); Anion Gap 9 mmol/L (4-12); Aspartate Amino Transferase 65 U/L (17-59); Bilirubin,Total 0.8 mg/dL (0.2-1.3); Blood Urea Nitrogen 13 mg/dL (9-20); Calcium 8.7 mg/dL (8.4-10.2); Carbon Dioxide 22 mmol/L (22-30); Chloride 106 mmol/L (98-107); Estimated Glomerular Filt Rate > 60; Glucose 105 mg/dL (65-110); Potassium 4.0 mmol/L (3.4-5.0); Sodium 137 mmol/L (137-145); Total Protein 7.9 g/dL (6.3-8.2)
[2025-08-10 11:42] LABS: Thyroid Stimulating Hormone Reflex 2.460 uIU/mL (0.465-4.68)
== END 2025-08-10 09:51 | disposition home or self-care (01) ==
LOC: ANHLAB 09:51
PROVIDERS: PCP Family Medicine; Visit Provider Nurse Practitioner
DX: K76.0 Fatty (change of) liver, not elsewhere classified (principal); E66.9 Obesity, unspecified; K21.9 Gastro-esophageal reflux disease without esophagitis
CPT/HCPCS: 36415; 80053; 84443; 85027; 85610